=== PATIENT | male | born 1960 | race Caucasian/White ===

== ENCOUNTER → 2016-06-16 | Outpatient (CLI) | payer OTHER ==
--- NOTE | 2016-06-16 11:13 | DIAGNOSTIC IMAGING REPORT ---
RIGHT HINDFOOT MRI HISTORY: RIGHT FOOT PAIN Right TECHNIQUE: Multiplanar multisequence MRI of the right hindfoot was performed without the use of intravenous contrast. COMPARISON STUDY: None. FINDINGS: No fracture or dislocation within the hindfoot. Mild marrow edema at the bases of the fourth and fifth metatarsals and within the lateral cuneiforms bone. This likely represents mild degenerative change. The anterior talofibular ligament is not identified and is likely completely torn. There is no associated edema to suggest an acute injury. The remaining medial and lateral stabilizing ligaments are intact. The visualized Achilles tendon is normal in course, caliber, and signal intensity. The extensor and peroneal tendons are intact. Focal thickening at the distal posterior tibial tendon deep to the patient's skin marker. This is consistent with a tendinopathy.. No soft tissue swelling within the ankle/hindfoot. Mild cartilage irregularity at the talar dome consistent with degenerative change. The plantar fascia is intact. IMPRESSION: 1. Focal thickening of the distal posterior tibial tendon consistent with a tendinopathy. 2. No acute fracture or dislocation within the hindfoot/ankle. 3. 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 4. Mild degenerative changes within the ankle/foot. Electronically signed by: Perry Miles M.D. 06/16/2016 11:11 AM Dictated Date/Time: 06/16/2016 11:00 AM
== END | disposition home or self-care (01) ==
LOC: C.MRI 09:38
PROVIDERS: ATTEND Podiatrist Foot & Ankle Surgery
DX: M76.821 Posterior tibial tendinitis, right leg (principal)

== ENCOUNTER 2017-06-12 05:31 | Day surgery (SDC) | payer OTHER ==
--- NOTE | 2017-06-07 14:17 | HISTORY & PHYSICAL EXAMINATION ---
DATE OF ADMISSION: 06/12/2017 PREOPERATIVE HISTORY AND PHYSICAL HISTORY OF PRESENT ILLNESS: A 56-year-old male presents for initial preop evaluation. Pain is located in the right foot, condition is graded as on an 8/10 point scale on the right, gradually worsening over time. Pain is described as aching, pain, tender and sore. Condition was first noted several years ago. The patient denies any recent exposure for suspicion event or history for this condition associated signs and symptoms include pain, swelling and tenderness, tingling on the right. He indicates Cam walker did not change the condition. He has also had ice, elevation, injection, massage, nonsteroidals, oral medications, physical therapy, rest and strapping, under several doctors including Dr. Orosco and Dr. Alarcon with little relief. The patient was sent to the office by Dr. Alarcon for surgical intervention last year and was unable to go surgery at that time due to cardiac complications. He is now requesting surgery a year later and his pain still continues. Past treatments included listed above in addition to x-rays, MRIs, accommodative shoes, brace, elevation, injection, insoles, massage therapy, narcotics, nonsteroidals, orthotics, physical therapy, rest and strapping. Due to the nature and severity of the discomfort, he is requesting surgical intervention. PAST SURGICAL HISTORY: Cardiac stent implant in 2016. PAST MEDICAL HISTORY: Thyroid condition, back problems, neck problems, cardiac disease. MEDICATIONS: Baby aspirin, levothyroxine, metoprolol, and Lipitor. ALLERGIES: No known medical allergies. FAMILY HISTORY: Alzheimer disease, prostate cancer and diabetes. SOCIAL HISTORY: The patient denies smoking, alcohol use, illicit drug use, and STDs. REVIEW OF SYSTEMS: Unremarkable except chief complaint. PHYSICAL EXAMINATION: VITAL SIGNS: Blood pressure is 142/90; temperature, tympanic is 96.6. Height 5 feet 10 inches, weight 190 pounds, body mass index 27. CONSTITUTIONAL: The patient appears well-developed and nourished with good attention to body grooming and habitus. HEAD AND FACE: Head is normocephalic, atraumatic without any gross head, face, or neck masses. EYES: Conjunctival and pupillary reaction to light and accommodation are normal. EARS, NOSE, MOUTH, AND THROAT: Unremarkable. NECK: Supple. Trachea is midline without any adenopathy or crepitance palpable. CARDIOVASCULAR: Normal S1, S2 without murmur, gallops, rubs, or clicks noted. Cardiovascular exam is normal. RESPIRATORY: Chest is symmetric. No scars are visible. No port or pacemaker. LUNGS: Clear to auscultation bilaterally and equal. GASTROINTESTINAL: Abdominal organs, bladder, and kidneys show no abnormalities, masses, tenderness, or rigidity. LYMPHATIC: No popliteal, inguinal, or supraclavicular lymphadenopathy noted. LOWER EXTREMITIES: DP palpable. PT palpable. DERMATOLOGIC: Dorsum of the left forefoot shows rash, clustered and NEUROLOGICAL: Touch, pin, vibratory pain sensations are normal. Epicritic sensations over the tibial nerve left IV and are intact. Deep tendon reflexes normal. MUSCULOSKELETAL: Muscle tone is normal. Muscle strength is 5/5 all groups tested. Gait analysis performed which shows excessive pronation bilaterally. Examination of posterior tibial tendon reveals weak with pain on direct palpation in the insertional area which is weak and painful on inversion against resistance. Forefoot is abducted in transverse plane on the rearfoot. Heel toe rise is unable to be performed. Heel toe rise is painful on the right. LABORATORY AND IMAGING DATA: Nerve conduction labs nerve conduction study revealed remarkable for some underlying changes consistent with polyneuropathy. In addition, there is a very mild acute left L4 radiculopathy that was performed on 07/05/2016. MRI of the right foot on 06/16/2016 showed focal thickening over the distal portion of the tibia, posterior tendon consistent with tendinopathy with a full thickness tear of the anterior talofibular ligament. Mild degenerative changes within the ankle and foot. IMPRESSION: 1. Abnormal EMG. 2. Polyneuropathy. 3. Posterior tibial tendonitis, right. 4. Tendonopathy per MRI. 5. Abnormal EMG with pain and difficulty walking. 6. Seborrheic dermatitis. 7. History of back issues, L3-L4. 8. L4 radiculopathy. PLAN: I explained the in the anatomy of posterior tibial tendon. Informed him the acquired flat foot deformity that can develop after condition progresses. Discussed conservative management consisting of medications, custom-molded orthotics, ankle foot orthosis, immobilization and conservative management of the tendonitis, walk to alleviate the symptoms. He notes continued pain over the past year. He is aware that the abnormal EMG with radiculitis may also be an underlying cause of his discomfort that would not be corrected with the surgery and this was discussed at length. Surgical procedures to be performed Kidner advancement, posterior tibial tendon repair of the right with graft. This will be performed under general anesthesia as an outpatient at the hospital. We discussed the graft and its associated risk. Procedure, risks and complications were fully reviewed with the patient. Consent form and foot diagram and illustration reviewed and all their questions were answered. Complications were discussed in detail with the patient including pain, infection, swelling that may or may not be excessive, pins and needles feeling, numbness, metatarsalgia, excessive bleeding, delay or nonhealing bone, delay or nonhealing of skin, enlarged scar, failure of the procedure, reoccurrence or worsening of condition that may not require further surgery, adverse reaction to anesthesia, allergic reaction to suture or other implant material, loss of toe, foot, or leg, flail toe, stiff toe, short toe, elevated toe, transfer lesion or callus, peripheral neurovascular complications such as phlebitis, damage to nerves or vascular structures, significant chronic pain, chronic nerve pain or damage, and general medical complications. The patient will be required to be nonweightbearing in a cast for a minimum of 6-8 weeks followed by weightbearing cast immobilization for 2-4 weeks and not return to dress shoes for 10-16 weeks depending on the postop edema. The patient is aware this is an elective type procedure and I recommend a second opinion. The patient and they understood. Consent form was signed with a copy of the foot diagram issued to the patient. Verbal and written postop instructions were given. The patient will return to the office for postop check or sooner if medically necessary. Instructed to keep dressing clean, dry and intact until seen at the office. At time of the preoperative appointment, prescriptions for Keflex and Percocet were dispensed. MTDD
[~2017-06-12] VITALS: Ht 177.8 cm; Wt 86.5 kg
[2017-06-12] MEDS ORDERED: ASPCH81X PO (05:45)
[2017-06-12] MEDS ORDERED: ATOR10TA82 PO (05:45)
[2017-06-12] MEDS ORDERED: METO25TA3 PO (05:45)
[2017-06-12] MEDS ORDERED: LEVO25TA5 PO (05:45)
[2017-06-12 05:53] VITALS: BP 152/83; PULSE 60; TEMP 36.5; O2SAT 97; Ht 177.8 cm; Wt 86.5 kg
[2017-06-12] MEDS ORDERED: CEFAZOLIN 2000MG IV PUSH 10 ML IV SCH (06:00)
[2017-06-12] MEDS ORDERED: LACTATED RINGER'S 1000ML 1,000 ML IV SCH ×2 (06:00)
[2017-06-12 06:01] LABS: HEMATOCRIT 43.3 % (42-52); MEAN CELL VOLUME 90.4 fL (80-100); MEAN CORPUSCULAR HEMOGLOBIN 31.3 pg (25-34); MEAN PLATELET VOLUME 9.6 fL (7.4-10.4); PLATELET COUNT 168 K/uL (130-400); RED CELL DISTRIBUTION WIDTH CV 12.2 % (11.5-14.5); RED CELL DISTRIBUTION WIDTH SD 40.2 fL (36.4-46.3); WHITE BLOOD COUNT 6.46 K/uL (4.8-10.8)
[2017-06-12 06:04] LABS: MEAN CORPUSCULAR HGB CONC 34.6 g/dl (32-36)
[2017-06-12 06:25] LABS: CREATININE 1.05 mg/dl (0.60-1.40); POTASSIUM 4.4 mmol/L (3.5-5.1)
[2017-06-12] MEDS ORDERED: CEFAZOLIN SOD 2000MG/15 ML IV PUSH IV ONE (06:33)
[2017-06-12] MEDS ORDERED: ROPIVACAINE 0.5% 5 MG/ML 30 ML VIAL ONE (06:34)
[2017-06-12] MEDS ORDERED: PROPOFOL IV EMULSION 10 MG/ML 20 ML VIAL IV ONE (07:03)
[2017-06-12] MEDS ORDERED: ONDANSETRON INJ 2 MG/ML 2 ML VIAL ONE ×2 (07:03→08:18)
[2017-06-12] MEDS ORDERED: DEXAMETHASONE SOD INJ 4 MG/ML VIAL ONE ×2 (07:03→08:18)
[2017-06-12] MEDS ORDERED: FENTANYL CITRATE INJ 50 MCG/1 ML 2 ML VIAL ONE (07:03)
[2017-06-12] MEDS ORDERED: MIDAZOLAM HCL 1 MG/ML 2ML VIAL ONE (07:03)
[2017-06-12] MEDS ORDERED: LIDOCAINE HCL 2% 2 ML VIAL (20MG/ML) ONE (07:03)
--- NOTE | 2017-06-12 07:04 | History & Physical Bridge Note ---
H&P Re-Evaluation Bridge Note: I have examined the patient, reviewed the History & Physical and in the interval since the performance of the History & Physical I have noted the following changes of clinical significance: No changes noted
[2017-06-12] MEDS ORDERED: SODIUM CHLORIDE 0.9% 1000ML 1,000 ML IV SCH ×2 (07:05)
--- NOTE | 2017-06-12 07:05 | Discharge Instructions ---
Discharge Instructions Date of Service Jun 12, 2017. Admission Reason for Admission: Posterior Tibial Tendinitis Right Discharge Discharge Diagnosis / Problem: same as diagnosis Discharge Goals Goal(s): Decrease discomfort Activity Recommendations Activity Limitations: as noted below Medications: * Resume previous medications unless instructed by your surgeon. * Take your medications as prescribed. Call our office ([phone]) at any time, if you experience severe pain that does not subside shortly after taking your pain medication. Activity: * Do not put any standing weight on your operated foot/ankle. Use the crutches or walker as instructed. Special Care: * Keep your bandage clean and dry. Do not remove your bandage unless otherwise instructed. A small amount of blood may appear on the bandage over the surgical site. Call our office ([phone]) if you bandage becomes blood-soaked or wet. * Elevate your operated foot/ankle on pillows, above the level of your heart, as often as possible during the first 2-3 days following surgery. Keep your knee flexed slightly with a pillow under your knee when you elevate your foot/ankle. * Apply a ice bag to your foot/ankle over the operative site for 20-30 minutes out of each hour while you are awake. Do not allow the ice bag to directly contact bare skin. * Avoid bumping or handling any pins visible in your toes. If any pin feels or appears loose, call the office ([phone]). * Take your oral temperature in the morning and at bedtime. Call our office ([phone]) if your temperature rises above 101 degrees Fahrenheit. Call your surgeon's office at ([phone]) for any problems or concerns such as excessive bleeding and/or pain unrelieved by your prescribed pain medications. If you have any questions, please do not hesitate to ask them. Avoid all tobacco products. If you need help to stop smoking, call [place] FREE QUITLINE at . This is a free call. Follow-up: Follow-up with Dr. Loja . Current Hospital Diet Patient's current hospital diet: Discharge Diet Recommended Diet: Regular Diet Pending Studies Studies pending at discharge: no Medical Emergencies . Who to Call and When: Medical Emergencies: If at any time you feel your situation is an emergency, please call 911 immediately. . Non-Emergent Contact Non-Emergency issues call your: Primary Care Provider . "Provider Documentation" section prepared by Chyna Garrett. . VTE Core Measure Inpt VTE Proph given/why not?: Treatment not indicated
[2017-06-12] MEDS ORDERED: POVIDONE-IODINE 10% OINT 30 GM TUBE EX ONE (07:33)
[2017-06-12] MEDS ORDERED: BUPIVACAINE 0.25% 30 ML VIAL ONE (07:35)
[2017-06-12] MEDS ORDERED: ATROPINE SULFATE 0.1 MG/ML 5ML SYR IV PRN (08:00)
[2017-06-12] MEDS ORDERED: FENTANYL CITRATE INJ 50 MCG/1 ML 2 ML VIAL IV PRN (08:00)
[2017-06-12] MEDS ORDERED: ONDANSETRON INJ 2 MG/ML 2 ML VIAL IV PRN (08:00)
[2017-06-12] MEDS ORDERED: EpHEDrine SULFATE INJ 50 MG/ML AMP IV PRN (08:00)
[2017-06-12] MEDS ORDERED: HYDROmorphone INJ 1 MG/ML SYR IV PRN (08:00)
[2017-06-12] MEDS ORDERED: ROCURONIUM BROMIDE 10 MG/ML 5 ML VIAL IV ONE (08:18)
[2017-06-12] MEDS ORDERED: NEOSTIGMINE METHYLSULFATE 5 MG/5 ML SYR ONE ×2 (08:39→09:29)
[2017-06-12] MEDS ORDERED: GLYCOPYRROLATE INJ 0.2 MG/ML VIAL ONE ×2 (08:39→09:29)
--- NOTE | 2017-06-12 09:48 | OPERATIVE REPORT ---
DATE OF OPERATION: 06/12/2017 PREOPERATIVE DIAGNOSES: 1. Posterior tibial tendonitis right lower extremity. 2. Tendonopathy right lower extremity. 3. Prominence of navicular. POSTOPERATIVE DIAGNOSES: Same. PROCEDURES: 1. Posterior tibial tendon reconstruction with repair right lower extremity. 2. Kitner advancement right lower extremity. SURGEON: Dr. Loja. ANESTHESIA: General with regional field block performed by anesthesia. HEMOSTASIS: Pneumatic thigh tourniquet inflated to 350 mmHg for a total tourniquet time of 68 minutes. MATERIALS: 2-0, 3-0 Vicryl, 4-0 nylon, 5.0 PDS, tendon graft Arthrex acellular bioimplant measuring 0.3-1 mm x 4 cm, tendon anchor 2.85 from Arthrex and Mini SutureTak x2. FINDINGS: There was thinning of the posterior tibial tendon with distraction distal to the prominence of the navicular bone. HISTOPATHOLOGY: Bone sent. ESTIMATED BLOOD LOSS: Less than 5 mL. COMPLICATIONS: None. CONDITION: The patient tolerated the procedure and anesthesia well without complications, transported to the recovery room with vital signs stable and neurovascular status intact. OPERATION AND FINDINGS: PROCEDURE: The patient was brought to the OR and placed on the OR table in supine position. Upon completion of general anesthesia and a local field block by the anesthesia department, a well-padded thigh tourniquet was applied to the right lower extremity. The extremity was scrubbed, prepped and draped in the usual aseptic fashion. Attention was directed to the tarsal tunnel where the posterior tibial tendon artery was marked out and the dissection was carried down to the level of the posterior tibial tendon. It should be noted that there was fraying and thinning of the tendon distal to the prominence of the navicular. All bleeding was coagulated and tied off as necessary. The posterior tibial tendon was isolated. The resection of the prominent navicular bone was removed, this was checked under fluoroscopy and 2 anchors were placed in the navicular to slightly elevate and advance the tendon attachment just after placement of the 2 Arthrex anchors. The tendon was repaired using a Arthrex acellular bioimplant 3 x 4 cm with a thickness of 0.3-1 mL. This was intact with 2-0 Vicryl. Area was copiously lavaged with normal saline. Intraoperative fluoroscan images were obtained. Closure began of the deep structures and retinaculum using 2-0 Vicryl. Superficial deep structures closed using 3-0 Vicryl in a box stitch technique. Skin margins were closed using 5-0 PDS interspersed with 4-0 nylon. Pneumatic ankle tourniquet was released with hyperemic sue to digits 1 through 5. Dry sterile compressive dressing consisting of Adaptic, 4 x 4's, Webril and a posterior splint was applied to the right lower extremity. The patient tolerated the procedure and anesthesia well without complications. I attest to the content of the Intraoperative Record and any orders documented therein. Any exception s are noted below.
[2017-06-12 10:00] VITALS: BP 141/86; PULSE 56; TEMP 35.4; O2SAT 100
[2017-06-12 10:30] VITALS: BP 141/76; PULSE 55; O2SAT 100
[2017-06-12 11:00] VITALS: BP 157/84; PULSE 61; TEMP 36.1; O2SAT 100
--- NOTE | 2017-06-12 11:06 | Anesthesiology Progress Note ---
Anesthesia Post Op Note Date & Time Jun 12, 2017 at 11:06 Vital Signs Pain Intensity: 0 Vital Signs Past 12 Hours Date Time Temp Pulse Resp B/P (MAP) Pulse Ox O2 Delivery O2 Flow Rate FiO2 06/12/17 10:30 55 16 141/76 100 Room Air 06/12/17 10:00 35.4 56 16 141/86 100 Room Air 06/12/17 09:55 36.1 57 17 140/85 100 Room Air 06/12/17 09:45 50 15 122/70 100 Oxymask 10 06/12/17 09:35 51 16 118/71 100 Oxymask 10 06/12/17 09:25 53 16 133/79 100 Oxymask 10 06/12/17 09:19 36.0 57 14 121/74 100 Oxymask 10 06/12/17 05:53 36.5 60 20 152/83 (106) 97 Room Air Notes Mental Status: alert / awake / arousable, participated in evaluation Pt Amnestic to Procedure: Yes Nausea / Vomiting: adequately controlled Pain: adequately controlled Airway Patency, RR, SpO2: stable & adequate BP & HR: stable & adequate Hydration State: stable & adequate Anesthetic Complications: no major complications apparent
== END 2017-06-12 11:10 | disposition home or self-care (01) ==
LOC: C.ACU 05:31
PROVIDERS: ATTEND Podiatrist Foot & Ankle Surgery
DX: M76.821 Posterior tibial tendinitis, right leg (principal); I25.10 Atherosclerotic heart disease of native coronary artery without angina pectoris; I25.2 Old myocardial infarction; I10 Essential (primary) hypertension; E78.5 Hyperlipidemia, unspecified; E03.9 Hypothyroidism, unspecified; N40.0 Benign prostatic hyperplasia without lower urinary tract symptoms; Z79.82 Long term (current) use of aspirin; Z79.899 Other long term (current) drug therapy